=== PATIENT | male | born 1950 | race Caucasian/White ===

== ENCOUNTER 2018-07-16 10:32 | Day surgery (SDC) | payer MEDICARE, SELFPAY ==
[2018-07-16] VITALS (7 sets, daily range): BP systolic 107–136; BP diastolic 73–93; PULSE 61–79; RESP 7–15; TEMP 36.4–36.6; O2SAT 95–100; BMI 24.6
[2018-07-16] MEDS: SODIUM CHLORIDE 0.9% 1,000 ML 200 ML IV (11:19)
--- NOTE | 2018-07-16 12:25 | PM.HP.1 ---
History of Present Illness Chief complaint: [id number] SCREENING COLONOSCOPY Patient History Social History household members: spouse Family & Social History Social History: household members spouse Meds Home Medications Medication Instructions Recorded Confirmed Type fluoxetine 20 mg PO QDAY #90 tab 08/22/16 07/16/18 Rx glucosamine sulfate 1,500 mg PO DAILY 07/16/18 07/16/18 History multivitamin 1 tab PO DAILY 07/16/18 07/16/18 History Allergies Allergy/AdvReac Type Severity Reaction Status Date / Time No Known Drug Allergies Allergy Verified 07/16/18 11:19 Review of Systems Review of Systems All systems reviewed & are unremarkable except as noted in HPI and below Exam Vital Signs (past 8 hours): - 07/16/18 10:58 Temperature 97.8 F Pulse Rate 63 Respiratory Rate 15 Blood Pressure 136/93 H Pulse Oximetry 100 Oxygen Delivery Method Room Air Narrative Exam Narrative: Patient is alert and oriented Lungs are clear with no rales or wheezes Heart regular rhythm no murmur Abdomen soft nontender no organomegaly Rectal will be done at the time of colonoscopy Assessment & Plan Assessment & Plan narrative: Asymptomatic patient here for screening colonoscopy patient understands the procedure and agrees with no further questions
--- NOTE | 2018-07-16 12:33 | PM.OP.ENDO ---
Operative Date/Time/Diagnoses Date of procedure: 07/16/18 Time of procedure: 12:30 Pre-op diagnosis: Screening colonoscopy Post-op diagnosis: same Procedure & Clinicians Study performed: Screening colonoscopy Same procedure as scheduled: Yes Indications: This patient was properly identified during surgical pause given a total of 5 mg of Versed and 150 of fentanyl for the procedure. flexible fiberoptic colonoscope inserted transanally to the cecum. Patient is very mild diverticulosis in the sigmoid colon. No polyps no tumors no ulcerations were seen. Procedure was well tolerated. Surgeon: Jm Bonilla Procedure Notes SCOAP/Timeout: Done Procedure in detail: Flexible fiberoptic colonoscope inserted transanally into the cecum. There were no tumors no polyps no ulcerations. Patient has mild diverticulosis sigmoid colon. Sutures well tolerated. Scope withdrawal time: 7 minutes Findings: diverticulosis Specimen(s): none sent Complications: none Impression: Very mild sigmoid diverticulosis Recommendations: Colonscopy in 10 years Follow up: as needed Disposition: PACU
[2018-07-16] MEDS: fentaNYL 250 MCG/5 ML INJ IV (12:49)
[2018-07-16] MEDS: MIDAZOLAM 5 MG/5 ML VIAL IV (12:50)
== END 2018-07-16 13:55 | disposition home or self-care (01) ==
PROVIDERS: PCP Family Medicine; Visit Provider Surgery
PROC: 0DJD8ZZ Inspection of Lower Intestinal Tract, Via Natural or Artificial Opening Endoscopic (ICD-10-PCS; CPT 45378; principal; 2018-07-16 12:45)
DX: K57.30 Diverticulosis of large intestine without perforation or abscess without bleeding (principal)
CPT/HCPCS: G0121; J2250; J3010